=== PATIENT | female | born 1975 | race Caucasian/White ===

== ENCOUNTER → 2016-07-21 | Outpatient (CLI) | payer OTHER ==
[~2016-07-21] MED LIST: ISOVUE-370 76% 100ML VIAL (Q9967) As Ordered ONE
--- NOTE | 2016-07-21 08:44 | REP ---
CT NECK WITH CONTRAST: HISTORY: Dysphagia. CONTRAST: Isovue 370, 75 mL. Calcification is present in the right tonsil. This is secondary to a previous inflammatory disease. There is very minimal thickening of the right lateral wall of the inferior oropharynx and hypopharynx. The larynx and subglottic trachea are normal in appearance. This salivary and thyroid glands are normal. Small lymph nodes less than 1 cm in size are present in the internal jugular chains, posterior triangles, submandibular and submental areas. There is no adenopathy. Minimal degenerative change is present in the cervical spine. The lung apices are clear. The visualized sinuses are clear. IMPRESSION: There is very minimal thickening of the lateral wall of the inferior oropharynx and hypopharynx. This is suspicious for a neoplasm. Signed by Celestino Perez MD 07/21/2016 09:09 A
== END ==
LOC: M RAD 07:25
DX: R13.12 Dysphagia, oropharyngeal phase (principal)